=== PATIENT | male | born 1965 | race Caucasian/White ===

== ENCOUNTER → 2017-08-27 | Outpatient (CLI) | payer MEDICAID | LOC: STAR 10:51 | PROVIDERS: ATTEND Internal Medicine | DX: Z02.9 Encounter for administrative examinations, unspecified (principal) ==

== ENCOUNTER 2020-08-02 00:04 | Emergency (ER) | payer MEDICAID, OTHER ==
[~2020-08-02] VITALS: Ht 165.1 cm; Wt 92.0 kg
[2020-08-02 00:47] LABS: BASOPHILS % (AUTO) 1 % (0-1); EOSINOPHILS % (AUTO) 0 % (1-7); LYMPHOCYTES % (AUTO) 13 % (22-44); MEAN CORPUSCULAR HEMOGLOBIN 33.8 pg (27.5-34.5); MEAN CORPUSCULAR HGB CONC 34.7 g/dL (33.2-36.2); MEAN PLATELET VOLUME 7.2 fL (7.4-10.4); MONOCYTES % (AUTO) 10 % (2-9); NEUTROPHILS % (AUTO) 76 % (42-75); PLATELET COUNT 295 x10^3/uL (130-400); RED BLOOD COUNT 4.95 x10^6/uL (4.38-5.82); RED CELL DISTRIBUTION WIDTH 14.5 % (9.4-14.8)
[2020-08-02 00:48] LABS: MD NO
[2020-08-02 00:56] LABS: ANION GAP 7 mmol/L (5-15); CALCIUM 9.1 mg/dL (8.5-10.1); CHLORIDE 110 mmol/L (98-107); CREATININE 0.81 mg/dL (0.7-1.3)
--- NOTE | 2020-08-02 01:06 | NUR ---
Assumed care of pt at this time. Pt steady upon ambulation to room. Pt AO x 4. Skin pink, warm, and dry. Resp even and unlabored. No acute distress noted at this time. Call light within reach. Will cont to monitor pt.
[2020-08-02] MEDS ORDERED: APIX5TAB PO (01:22)
[2020-08-02] MEDS ORDERED: TRAZ-175 PO (01:22)
[2020-08-02] MEDS ORDERED: CARV6.252 PO (01:22)
[2020-08-02] MEDS ORDERED: ASPI-963 PO (01:22)
[2020-08-02] MEDS ORDERED: ATOR40TA PO (01:22)
[2020-08-02 02:18] VITALS: BP 130/65
== END 2020-08-02 02:20 | disposition home or self-care (01) ==
LOC: ED 00:34
DX: R68.83 Chills (without fever) (principal); R51.9 Headache, unspecified; R00.1 Bradycardia, unspecified; I25.2 Old myocardial infarction; Z98.61 Coronary angioplasty status
CPT/HCPCS: 36415; 80048; 85025; 93005; 99284